=== PATIENT | female | born 1990 | race African-American/Black ===

== ENCOUNTER 2018-06-13 19:31 | Emergency (ER) | payer MEDICAID ==
[2018-06-13] MEDS ORDERED: PENICILLIN V POTASSIUM 250 MG TAB PO ONE (20:10)
[2018-06-13] MEDS ORDERED: IBUPROFEN 400 MG TABLET PO ONE (20:10)
--- NOTE | 2018-06-13 20:12 | Emergency Department Record ---
History of Present Illness - General Chief complaint: Abscess Stated complaint: MOUTH ABCESS,HEADACHE Time Seen by Provider: 06/13/18 20:08 - Related Data Previous Rx's Medication Instructions Recorded Penicillin V Potassium 500 mg PO QID #27 tablet 06/13/18 Allergies Allergy/AdvReac Type Severity Reaction Status Date / Time No Known Allergies Allergy Unverified 12/30/17 14:45 Course Vital Signs 06/13/18 19:45 Temperature 98.4 F Pulse Rate [ 73 Pulse Ox Probe] Respiratory 24 Rate Blood Pressure 119/76 [Left Arm] Pulse Ox 100 Disposition Disposition: Discharge Clinical Impression: Dental caries Disposition: Home, Self-Care Condition: (2) Stable Instructions: Toothache (ED) Additional Instructions: Return to ED if your symptoms worsen or if you have any concerns. Pencillin VK as directed. Follow-up with a Dentist from the referral form given in 3-5 days as directed. Prescriptions: Penicillin V Potassium 500 mg PO QID #27 tablet Time of Disposition: 20:12 Quality - Blood Pressure Screening Does Patient Have Any of the Following: No Blood Pressure Classification: Normal BP Reading Systolic Measurement: 119 Diastolic Measurement: 76 Screening for High Blood Pressure: < Normal BP, F/U Not Required > [G8783]
--- NOTE | 2018-06-13 20:20 | Emergency Department Record ---
History of Present Illness - General Chief complaint: Abscess Stated complaint: MOUTH ABCESS,HEADACHE Time Seen by Provider: 06/13/18 20:08 Source: Patient Mode of Arrival: Ambulatory Limitations: No limitations - History of Present Illness Initial comments: 27 yo female presents to ED for evaluation of pain to the lower right posterior molar intermittently for the past 3 years. Patient denies fevers, chills, or recent trauma to the area. Patient denies seeing a dentist for her painful tooth previously. Patient denies health problems at her baseline. MD complaint: Tooth pain Onset/Timin -: Year(s) Severity: Moderate Quality: Aching Consistency: Constant Improves with: None Worsens with: None Context- Dental: History of dental caries - Related Data Previous Rx's Medication Instructions Recorded Penicillin V Potassium 500 mg PO QID #27 tablet 06/13/18 Review of Systems Constitutional: Denies: Chills, Fever, Malaise, Night sweats Eyes: Denies: Eye discharge, Eye pain ENT: Reports: Dental pain. Denies: Congestion, Ear pain Respiratory: Denies: Cough, Dyspnea Cardiovascular: Denies: Chest pain, Dyspnea on exertion Endocrine: Denies: Fatigue, Heat or cold intolerance Gastrointestinal: Denies: Abdominal pain, Nausea, Vomiting Genitourinary: Denies: Incontinence, Retention Musculoskeletal: Denies: Arthralgia, Back pain Skin: Denies: Bruising, Change in color Neurological: Denies: Abnormal gait, Confusion, Seizure Psychiatric: Denies: Anxiety Hematological/Lymphatic: Denies: Anemia, Blood Clots Physical Exam - General General Appearance: Alert, Oriented x3, Cooperative, Moderate distress Limitations: No limitations - Head Head exam: Atraumatic, Normocephalic, Normal inspection Head exam detail: negative: Abrasion, Contusion, Medina's sign, General tenderness, Hematoma, Laceration - Eye Eye exam: Normal appearance. negative: Conjunctival injection, Periorbital swelling, Periorbital tenderness, Scleral icterus - ENT Ear exam: negative: Auricular hematoma, Auricular trauma Nasal Exam: negative: Active bleeding, Discharge, Dried blood, Foreign body Mouth exam: negative: Drooling, Laceration, Muffled voice, Tongue elevation Image of Mouth/Teeth: 1 - Dental caries without evidence for gingival abscess present on examination. - Neck Neck exam: Normal inspection. negative: Meningismus, Tenderness - Respiratory Respiratory exam: Normal lung sounds bilaterally. negative: Rales, Respiratory distress, Rhonchi, Stridor - Cardiovascular Cardiovascular Exam: Regular rate, Normal rhythm, Normal heart sounds - Rectal Rectal exam: Deferred - exam: Deferred - Extremities Extremities exam: negative: Pedal edema, Tenderness - Back Back exam: Denies: CVA tenderness (R), CVA tenderness (L) - Neurological Neurological exam: Alert, Normal gait, Oriented X3 - Psychiatric Psychiatric exam: Normal affect, Normal mood - Skin Skin exam: Normal color. negative: Abrasion Type of lesion: negative: abrasion Course Vital Signs 06/13/18 19:45 Temperature 98.4 F Pulse Rate [ 73 Pulse Ox Probe] Respiratory 24 Rate Blood Pressure 119/76 [Left Arm] Pulse Ox 100 - Reevaluation(s) Reevaluation #1: 06/13/18 20:19 Examination appears c/w dental caries Will initiate treatment with Pen VK and Motrin Will provide dental referral sheet for dental evaluation in 3-5 days as directed. Patient appears stable for discharge at this time. Disposition Disposition: Discharge Clinical Impression: Dental caries Disposition: Home, Self-Care Condition: (2) Stable Instructions: Toothache (ED) Additional Instructions: Return to ED if your symptoms worsen or if you have any concerns. Pencillin VK as directed. Follow-up with a Dentist from the referral form given in 3-5 days as directed. Prescriptions: Penicillin V Potassium 500 mg PO QID #27 tablet Forms: Patient Portal Access Time of Disposition: 20:20 Quality - Quality Measures Quality Measures: N/A - Blood Pressure Screening Does Patient Have Any of the Following: No Blood Pressure Classification: Normal BP Reading Systolic Measurement: 119 Diastolic Measurement: 76 Screening for High Blood Pressure: < Normal BP, F/U Not Required > [G8783]
== END 2018-06-13 20:28 | disposition home or self-care (01) ==
LOC: ER 19:31
DX: K02.9 Dental caries, unspecified (principal)
CPT/HCPCS: 99282